=== PATIENT | male | born 1990 | race American Indian/Alaskan Native ===

== ENCOUNTER 2020-05-29 12:05 | Emergency (ER) | payer SELFPAY ==
[2020-05-29 12:44] VITALS: BP 124/71
[2020-05-29] MEDS ORDERED: IBUPROFEN 800 MG TAB PO ONE (13:50)
--- NOTE | 2020-05-29 13:51 | Emergency Department Report ---
ED Lower Extremity HPI - General Chief Complaint: Extremity Injury, Lower Stated Complaint: RT KNEE INJURY Time Seen by Provider: 05/29/20 13:26 Source: patient Mode of arrival: Ambulatory Limitations: No Limitations - History of Present Illness Initial Comments: This is a 29-year-old male nontoxic, well nourished in appearance, no acute signs of distress presents to the ED with c/o of right knee pain 1 week. 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 Patient denies any injury or trauma. Patient denies any numbness, tingling, fever, chills, nausea, vomiting, chest pain, shortness of breath, headache, stiff neck. Patient denies any joint swelling or joint redness. Patient denies decreased range of motion. Patient stated has decreased gait due to pain. Patient denies any allergies or significant past medical history. MD Complaint: knee injury -: week(s) Injury: Knee: Right Place: work Severity: mild Severity scale (0 -10): 8 Improves With: immobilization Worsens With: palpation Associated Symptoms: ambulatory. denies: snap/pop sensation, swelling, numbness, tingling, unable to bear weight, able to partially bear weight - Related Data Allergies Allergy/AdvReac Type Severity Reaction Status Date / Time No Known Allergies Allergy Unverified 05/29/20 12:40 ED Review of Systems ROS: Stated complaint: RT KNEE INJURY Other details as noted in HPI Constitutional: denies: chills, fever Eyes: denies: eye pain, eye discharge, vision change ENT: denies: ear pain, throat pain Respiratory: denies: cough, shortness of breath, wheezing Cardiovascular: denies: chest pain, palpitations Endocrine: no symptoms reported Gastrointestinal: denies: abdominal pain, nausea, diarrhea Genitourinary: denies: urgency, dysuria Musculoskeletal: denies: back pain, joint swelling, arthralgia Skin: denies: rash, lesions Neurological: denies: headache, weakness, paresthesias Psychiatric: denies: anxiety, depression Hematological/Lymphatic: denies: easy bleeding, easy bruising ED Past Medical Hx - Past Medical History Previous Medical History?: No - Surgical History Past Surgical History?: No ED Physical Exam - General Limitations: No Limitations General appearance: alert, in no apparent distress - Head Head exam: Present: atraumatic, normocephalic - Neck Neck exam: Present: normal inspection, full ROM. Absent: tenderness, meningismus, lymphadenopathy - Respiratory Respiratory exam: Absent: respiratory distress - Cardiovascular Cardiovascular Exam: Present: regular rate - Extremities Exam Extremities exam: Present: normal inspection, full ROM, tenderness, normal capillary refill. Absent: joint swelling, calf tenderness - Expanded Lower Extremity Exam Right Hip exam: Present: normal inspection, full ROM. Absent: tenderness, swelling Upper Leg exam: Present: normal inspection, full ROM. Absent: tenderness, swelling Knee exam: Present: full ROM, tenderness, full knee extension. Absent: swelling, abrasion, laceration, ecchymosis, deformity, crepidus, dislocation, erythema, effusion, pain w/ pronation/supination, posterior draw sign, pain/laxity with valgus, pain/laxity with varus Lower Leg exam: Present: normal inspection, full ROM. Absent: tenderness, swelling, abrasion, laceration, ecchymosis, deformity, crepidus, dislocation, erythema, palpable cord, Maya's sign Ankle exam: Present: normal inspection, full ROM. Absent: tenderness, swelling Foot/Toe exam: Present: normal inspection, full ROM. Absent: tenderness, swelling Neuro vascular tendon exam: Present: no vascular compromise Gait: Positive: observed and normal - Back Exam Back exam: Present: normal inspection, full ROM - Neurological Exam Neurological exam: Present: alert, oriented X3, normal gait - Psychiatric Psychiatric exam: Present: normal affect, normal mood - Skin Skin exam: Present: warm, dry, intact, normal color. Absent: rash ED Course Vital Signs 05/29/20 12:43 Temperature 98.5 F Pulse Rate 58 L Respiratory 18 Rate Blood Pressure 124/71 O2 Sat by Pulse 99 Oximetry - Reevaluation(s) Reevaluation #1: 05/29/20 13:43 Patient is speaking in full sentences with no signs of distress noted. ED Lower Extremity MDM - Radiology Data Referring Physician: LAUREL ARGUELLO Patient Name: BILLIE PEREZ Date of : 1990 Sex: Male Report Date: 2020-05-29 Report Status: Finalized [facility] [address] [place] [address] XRay Report Signed Patient: BILLIE PEREZ MR#: [id number] : 1990 Acct:[id number] Age/Sex: 29 / M ADM Date: 05/29/20 Loc: ED Attending Dr: Ordering Physician: LAUREL ARGUELLO NP Date of Service: 05/29/20 Procedure(s): XR knee 3V RT Accession Number(s): [id number] cc: LAUREL ARGUELLO NP Fluoro Time In Minutes: RIGHT KNEE 3 VIEWS INDICATION / CLINICAL INFORMATION: right knee pain. COMPARISON: None available. FINDINGS: No significant skeletal abnormality Signer Name: Laurel Martínez MD FACR Signed: 05/29/2020 3:01 PM Workstation Name: [id number] Transcribed By: MS Dictated By: Laurel Martínez MD Electronically Authenticated By: Laurel Martínez MD Signed Date/Time: 05/29/201500 DD/ 00 TD/TT: - Medical Decision Making This is a 29-year-old male that presents with right knee strain. Patient is stable and was examined by me. I referred patient to an orthopedic doctor for further evaluation for possible MRI. X-ray has been obtained and dictated by the radiologist. Patient eloped prior to getting xray results. Patient does have normal gait with no tenderness and no joint swelling. No ecchymosis. no joint redness or swelling. Not warm to touch. No signs of cellulites present. Patient was instructed to RICE therapy. Patient received Motrin for pain. Patient ELOPED prior to me re-examining the patient. Critical care attestation.: If time is entered above; I have spent that time in minutes in the direct care of this critically ill patient, excluding procedure time. ED Disposition Clinical Impression: Strain of right knee Qualifiers: Encounter type: initial encounter Qualified Code(s): S86.911A - Strain of unspecified muscle(s) and tendon(s) at lower leg level, right leg, initial encounter Disposition: ELOPED Is pt being admited?: No Condition: Undetermined
--- NOTE | 2020-05-29 15:05 | XRay Report ---
RIGHT KNEE 3 VIEWS INDICATION / CLINICAL INFORMATION: right knee pain. COMPARISON: None available. FINDINGS: No significant skeletal abnormality Signer Name: Ziyad Martínez MD FACR Signed: 05/29/2020 3:01 PM Workstation Name: [id number]
== END 2020-05-29 15:08 | disposition left against medical advice (07) ==
LOC: ED 12:05
DX: Z53.21 Procedure and treatment not carried out due to patient leaving prior to being seen by health care provider (principal)